=== PATIENT | female | born 1940 | race Caucasian/White ===

== ENCOUNTER 2018-05-27 22:29 | Emergency (ER) | payer MEDICARE ==
[2018-05-27 23:51] LABS: ALT (SGPT) 30 U/L (8-55); AST (SGOT) 39 U/L (5-34); Albumin 4.2 g/dL (3.4-4.8); Alkaline Phosphatase 178 U/L (40-150); Anion Gap 19 mmol/L (10-20); BUN (Urea Nitrogen) 23 mg/dL (9.8-20.1); Bilirubin, Total 0.7 mg/dL (0.2-1.2); Calc. Creatinine Clearance 0 mL/min (70-130); Calcium 9.3 mg/dL (7.8-10.44); Carbon Dioxide 26 mmol/L (23-31); Chloride 104 mmol/L (98-107); Estimated GFR-MDRD 74; Globulin 3.1 g/dL (2.4-3.5); Glucose 126 mg/dL (83-110); Potassium 3.4 mmol/L (3.5-5.1); Protein, Total 7.3 g/dL (6.0-8.3); Sodium 146 mmol/L (136-145)
[2018-05-27 23:52] LABS: #Basophils 0.1 thou/uL (0.0-0.2); #Eosinphils 0.1 thou/uL (0.0-0.7); #Lymphocytes 0.8 thou/uL (1.20-3.40); #Monocytes 0.6 thou/uL (0.11-0.59); #Neutrophils 13.5 thou/uL (1.40-6.50); %Basophils 0.4 % (0.0-1.0); %Eosinophils 0.6 % (0.0-10.0); %Lymphocytes 5.3 % (21.0-51.0); %Monocytes 4.1 % (0.0-10.0); %Neutrophils 89.5 % (42.0-75.0); Hemoglobin 13.2 g/dL (12.0-16.0); Mean Corpuscular HGB CONC 34.3 g/dL (32.0-36.0); Mean Corpuscular Volume 84.6 fL (78.0-98.0); Mean Platelet Volume 8.2 fL (7.4-10.4); Platelet Count 269 thou/uL (130-400); RBC Distribution Width 15.5 % (11.5-14.5); Red Blood Cell (RBC) Count 4.57 mill/uL (4.20-5.40); White Blood Cell (WBC) Count 15.1 thou/uL (4.8-10.8)
[2018-05-28] MEDS ORDERED: metroNIDAZOLE 500 MG/100 ML BAG ONE (00:37)
[2018-05-28 01:04] LABS: Clarity Clear (Clear); Leukocyte Negative (Negative); Nitrite Negative (Negative); Protein, Urine (Dipstick) Trace mg/dL (Neg-Trace); pH, Urine 5.5 (5.0-9.0)
[2018-05-28 01:05] LABS: Bilirubin Negative (Negative); Blood, Urine Small (Negative); Glucose, Urine (Dipstick) Negative (Negative)
[2018-05-28 01:09] LABS: Bacteria/HPF 2+ HPF (None Seen); RBC/HPF 0-3 HPF (0-3); Squamous Epithelial None Seen HPF (0-3); WBC/HPF 0-3 HPF (0-3)
--- NOTE | 2018-05-28 08:20 | CT ---
PRELIMINARY REPORT/[facility]/EMERGENTY AFTER-HOURS PROCEDURE Addendum created by Benji Jaquez MD on 05/28/2018 1:27 AM Central Time ([place]) THIS REPORT CONTAINS FINDINGS THAT MAY BE CRITICAL TO PATIENT CARE. The findings were verbally commun icated via telephone conference with ROBERT LINDO at 1:02 AM [employer] on 05/28/2018. The findings were ac knowledged and understood. Initial Report created on 05/28/2018 1:11 AM Central Time ([place] & [place]) CT Abdomen and Pelvis With Intravenous Contrast EXAM DATE/TIME: 05/28/2018 12:06 AM CLINICAL HISTORY: 78 years old, female; Signs and symptoms; Nausea and vomiting; Additional info: R/O diverticulitis TECHNIQUE: Axial computed tomography images of the abdomen and pelvis with intravenous contrast. All CT scans at this facility use at least one of these dose optimization techniques: automated expos ure control; mA and/or kV adjustment per patient size (includes targeted exams where dose is matched to clinical indication); or iterative reconstruction. Coronal and sagittal reformatted images were cr eated and reviewed. CONTRAST: 100 ml of isovue 370 administered intravenously. COMPARISON: No relevant prior studies available. FINDINGS: Lower thorax: Bibasal subsegmental atelectasis. ABDOMEN: Liver: 1.7 cm hypoattenuating lesion posteriorly in the hepatic dome with question of minimal nodular peripheral enhancement to suggest a hemangioma although incompletely evaluated. Additional 0.8 cm hy poattenuating lesion in the dome of superiorly. Gallbladder and bile ducts: Cholelithiasis. Otherwise unremarkable. Pancreas: Unremarkable. Spleen: Nonspecific 1 cm splenic hypodensity. Adrenals: Unremarkable. Kidneys and ureters: 1.3 cm left renal cyst and few small low attenuation lesions too small to charac terize. Otherwise unremarkable. Stomach and bowel: Floppy cecum lying in the pelvic midline. Sigmoid diverticulosis; no surrounding i nflammatory changes appreciated. Much of the small bowel located on the right without kinking or swir ling of the mesenteric vasculature to indicate an internal hernia. Multiple small bowel diverticula of varying sizes are present in the right abdomen. There is extraluminal gas within the m esentery of the small bowel with mild mesenteric fat stranding. No distinct focal thickening of a particular diverticulum or small bowel wall is evident. No definite fluid collection; there multiple pockets of fluid which appear to be within diverticula. No evidence of obstruction. Appendix: Not identified. PELVIS: Bladder: Unremarkable. Reproductive: 3 cm mixed density pelvic nodule likely representing a uterine fibroid. ABDOMEN and PELVIS: Intraperitoneal space: No free air identified elsewhere. Bones/joints: No acute fracture. No dislocation. Soft tissues: Unremarkable. Vasculature: Unremarkable. Lymph nodes: No enlarged lymph nodes. IMPRESSION: Multiple small bowel diverticula in the right abdomen with extra luminal gas and mild stranding in th e mesentery consistent with perforation presumably related to diverticulitis. Thank you for allowing us to participate in the care of your patient. Dictated and Authenticated by: Benji Jaquez MD 05/28/2018 1:11 AM Central Time ([place] & [place]) FINAL REPORT CT ABDOMEN AND PELVIS WITH CONTRAST: DATE: 05/28/2018. FINDINGS: Spiral CT of the abdomen and pelvis was done after injection of IV contrast. Oral contrast was withh eld by request. The lung bases are clear, except for some dependent atelectasis. The liver is normal in size. There is a hypoattenuating lesion near the dome of the liver that measures about 1.9 cm in size and has so me peripheral enhancement. A hemangioma is likely. There are a few other smaller low densities in t he dome of the liver that could be cysts but are indeterminate in nature. The spleen, pancreas, and adrenal glands were unremarkable. The gallbladder contains gallstones without clear signs of wall th ickening. The right kidney appears normal. The left kidney has several hypodensities, the largest m easuring about 1.5 cm in size. They are most likely all small cysts. Ultrasound would be needed for confirmation. The abdominal aorta shows some calcification, but no aneurysm. There is a significant amount of small bowel present in the right flank and the cecum is much more ce ntral in location. This is presumably a malrotation of sorts, though there is no evidence of kinked bowel or markedly distended bowel to suggest obstruction. There is some fluid-filled jejunum with so me mild all thickening in the vicinity of the right upper quadrant. Small bowel diverticula are seen in this patient. There are several areas that appear to be small bowel diverticula and at least one area that appears to have some extraluminal air in the mesentery near the right upper quadrant. Her e is a little mesenteric streaking here. The presumption is diverticulitis from perforation of a sma ll bowel diverticulum. There is no sign of focal abscess. Colonic diverticula are present without s tranding around them, predominantly in the sigmoid region. There is a rounded area that is about 3 cm in size associated with the fundus of the uterus that is p resumed to be a fibroid. A pelvic ultrasound would be helpful. No other pelvic masses, fluid collec tions, or inflammatory changes were seen in that region. Degenerative changes are present throughout the spine, particularly in the facet joints. Spinal stenosis is present at L4-L5 due to a combinati on of a concentric bulging disk and facet and ligamentous hypertrophy. IMPRESSION: 1. Multiple small bowel diverticula with suspicion of mild diverticulitis in the right upper quadran t due to perforation of one of those diverticula. 2. Fluid-filled jejunum in the right flank, probably associated with the same. 3. Gallstones. 4. Possible hemangioma of the liver. 5. Probable uterine fibroid. Report in agreement with preliminary reading by [facility]. POS: HOME
== END 2018-05-28 02:10 | disposition short-term general hospital (02) ==
LOC: BURERS 22:29
DX: A41.9 Sepsis, unspecified organism (principal); K57.20 Diverticulitis of large intestine with perforation and abscess without bleeding; I10 Essential (primary) hypertension
CPT/HCPCS: 74177; 80053; 81003; 81015; 83605; 85025; 96361; 96365; A4353; J1956

== ENCOUNTER 2020-10-14 19:21 | Emergency (ER) | payer MEDICARE | END 2020-10-14 22:30 | disposition short-term general hospital (02) | LOC: BURERS 19:21 | DX: S32.049A Unspecified fracture of fourth lumbar vertebra, initial encounter for closed fracture (principal); M48.061 Spinal stenosis, lumbar region without neurogenic claudication; I48.91 Unspecified atrial fibrillation; E03.9 Hypothyroidism, unspecified; E78.5 Hyperlipidemia, unspecified; E78.00 Pure hypercholesterolemia, unspecified; I10 Essential (primary) hypertension; Z79.899 Other long term (current) drug therapy; W18.30XA Fall on same level, unspecified, initial encounter | CPT/HCPCS: 72100; 72131 ==

== ENCOUNTER 2021-01-17 10:38 | Outpatient (CLI) | payer MEDICARE | END 2021-01-17 10:39 | disposition home or self-care (01) | LOC: BURMANOR 10:38 | PROVIDERS: ATTEND Family Medicine | DX: D51.9 Vitamin B12 deficiency anemia, unspecified (principal) | CPT/HCPCS: 82607 ==

== ENCOUNTER 2021-10-19 09:27 | Emergency (ER) | payer MEDICARE ==
[2021-10-19 10:21] LABS: #Basophils 0.1 thou/uL (0.0-0.2); #Eosinphils 0.2 thou/uL (0.0-0.7); #Lymphocytes 1.3 thou/uL (1.20-3.40); #Monocytes 0.6 thou/uL (0.11-0.59); #Neutrophils 6.7 thou/uL (1.40-6.50); %Basophils 0.9 % (0.0-1.0); %Eosinophils 2.3 % (0.0-10.0); %Lymphocytes 14.3 % (21.0-51.0); %Monocytes 7.1 % (0.0-10.0); %Neutrophils 75.4 % (42.0-75.0); Hemoglobin 14.6 g/dL (12.0-16.0); Mean Corpuscular HGB CONC 32.6 g/dL (32.0-36.0); Mean Corpuscular Volume 89.1 fL (78.0-98.0); Mean Platelet Volume 7.4 fL (7.4-10.4); Platelet Count 257 thou/uL (130-400); RBC Distribution Width 15.7 % (11.5-14.5); Red Blood Cell (RBC) Count 5.04 mill/uL (4.20-5.40); White Blood Cell (WBC) Count 8.9 thou/uL (4.8-10.8)
[2021-10-19 10:41] LABS: ALT (SGPT) 15 U/L (8-55); AST (SGOT) 18 U/L (5-34); Albumin 4.2 g/dL (3.4-4.8); Alkaline Phosphatase 127 U/L (40-110); Anion Gap 18 mmol/L (10-20); BUN (Urea Nitrogen) 24 mg/dL (9.8-20.1); Bilirubin, Total 0.8 mg/dL (0.2-1.2); Calc. Creatinine Clearance 0 mL/min (70-130); Calcium 9.3 mg/dL (7.8-10.44); Carbon Dioxide 26 mmol/L (23-31); Chloride 102 mmol/L (98-107); Globulin 2.6 g/dL (2.4-3.5); Glucose 118 mg/dL (83-110); Potassium 4.4 mmol/L (3.5-5.1); Protein, Total 6.8 g/dL (5.8-8.1); Sodium 142 mmol/L (136-145)
== END 2021-10-19 12:12 | disposition short-term general hospital (02) ==
LOC: BURERS 09:27
DX: R06.02 Shortness of breath (principal); I10 Essential (primary) hypertension; I48.91 Unspecified atrial fibrillation; E03.9 Hypothyroidism, unspecified; E78.5 Hyperlipidemia, unspecified; E78.00 Pure hypercholesterolemia, unspecified; Z79.890 Hormone replacement therapy; Z79.899 Other long term (current) drug therapy
CPT/HCPCS: 71046; 80053; 83880; 84484; 85025; 93005; 94760

== ENCOUNTER 2024-03-04 09:18 | Emergency (ER) | payer MEDICARE ==
[2024-03-04 09:50] LABS: #Basophils 0.1 thou/uL (0.0-0.2); #Eosinphils 0.3 thou/uL (0.0-0.7); #Lymphocytes 1.4 thou/uL (1.20-3.40); #Monocytes 0.7 thou/uL (0.11-0.59); #Neutrophils 5.5 thou/uL (1.40-6.50); %Basophils 1.1 % (0.0-1.0); %Eosinophils 3.2 % (0.0-10.0); %Lymphocytes 17.7 % (21.0-51.0); %Neutrophils 69.1 % (42.0-75.0); Hematocrit 39.3 % (36.0-47.0); Hemoglobin 13.1 g/dL (12.0-16.0); Mean Corpuscular HGB CONC 33.5 g/dL (32.0-36.0); Mean Corpuscular Hemoglobin 27.6 pg (27.0-31.0); Mean Corpuscular Volume 82.4 fl (78.0-98.0); Mean Platelet Volume 6.9 fL (7.4-10.4); Platelet Count 281 10x3/uL (130-400); RBC Distribution Width 13.5 % (11.5-14.5); Red Blood Cell (RBC) Count 4.77 mill/uL (4.20-5.40); White Blood Cell (WBC) Count 7.9 10x3/uL (4.8-10.8)
[2024-03-04 10:09] LABS: ALT (SGPT) 13 U/L (8-55); AST (SGOT) 19 U/L (5-34); Albumin 3.7 g/dL (3.4-4.8); Alkaline Phosphatase 113 U/L (40-110); Anion Gap 17 mmol/L (10-20); BUN (Urea Nitrogen) 14 mg/dL (9.8-20.1); Bilirubin, Total 0.9 mg/dL (0.2-1.2); Calc. Creatinine Clearance 0 mL/min (70-130); Calcium 8.8 mg/dL (7.8-10.44); Carbon Dioxide 23 mmol/L (23-31); Chloride 105 mmol/L (98-107); Estimated GFR 85; Globulin 3.2 g/dL (2.4-3.5); Glucose 100 mg/dL (83-110); Protein, Total 6.9 g/dL (5.8-8.1); Sodium 141 mmol/L (136-145)
[2024-03-04 10:10] LABS: Troponin I Less than 0.010 ng/mL (< 0.028)
[2024-03-04 12:02] LABS: Bilirubin Negative (Negative); Blood, Urine Negative (Negative); Clarity Clear (Clear); Glucose, Urine (Dipstick) Negative (Negative); Ketone, Urine Trace mg/dL (Negative); Leukocyte Negative (Negative); Nitrite Negative (Negative); Protein, Urine (Dipstick) 100 mg/dL (Neg-Trace); Specific Gravity, Urine 1.025 (1.005-1.030)
[2024-03-04 12:12] LABS: Bacteria/HPF 2+ HPF (None Seen); CAUTI Indications for Culture Alt mental st,lethar; RBC/HPF 0-3 HPF (0-3); Renal Epithelial 0-3 HPF (None Seen); Squamous Epithelial 0-3 HPF (0-3); WBC/HPF 0-3 HPF (0-3)
[2024-03-04 12:14] LABS: Urine Culture Reflex No No
== END 2024-03-04 12:37 | disposition home or self-care (01) ==
LOC: BURERS 09:18
DX: E86.0 Dehydration (principal); I48.91 Unspecified atrial fibrillation; I10 Essential (primary) hypertension
CPT/HCPCS: 71045; 80053; 81001; 83880; 84443; 84484; 85025; 93005; 96360; 96361

== ENCOUNTER 2024-03-24 13:35 | Emergency (ER) | payer MEDICARE, OTHER ==
[2024-03-24] MEDS ORDERED: Metoprolol Tartrate 50 MG TAB ONE (14:02)
== END 2024-03-24 14:45 | disposition home or self-care (01) ==
LOC: BURERS 13:35
DX: S20.211A Contusion of right front wall of thorax, initial encounter (principal); M17.12 Unilateral primary osteoarthritis, left knee; I10 Essential (primary) hypertension; I48.91 Unspecified atrial fibrillation; X50.9XXA Other and unspecified overexertion or strenuous movements or postures, initial encounter
CPT/HCPCS: 71045